=== PATIENT | female | born 1975 | race African-American/Black ===

== ENCOUNTER 2017-11-17 19:58 | Emergency (ER) | payer SELFPAY ==
[~2017-11-17] VITALS: Ht 167.6 cm; Wt 85.7 kg
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
--- NOTE | 2017-11-17 20:41 | NUR ---
DIONNE CAT AT BEDSIDE FOR EVAL.
[2017-11-17] MEDS ORDERED: KETOROLAC TROMETHAMINE INJ 30 MG/ML VIAL IM ONE (21:00)
[2017-11-17] MEDS ORDERED: KETOROLAC TROMETHAMINE 15 MG/ML VIAL ONE (21:03)
[2017-11-17] MEDS ORDERED: ONDANSETRON 4 MG TAB.RAPDIS ONE (21:24)
[2017-11-17] MEDS ORDERED: ONDANSETRON 4 MG TAB.RAPDIS PO ONE (21:30)
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
--- NOTE | 2017-11-17 22:09 | NUR ---
Patient discharged to home in stable condition. Written and verbal after care instructions given. Patient verbalizes understanding of instruction.
[2017-11-17 22:10] VITALS: BP 121/84
== END 2017-11-17 22:10 | disposition home or self-care (01) ==
LOC: ER 20:01
DX: R51 Headache (principal); M54.5 Low back pain; Z98.890 Other specified postprocedural states; Z88.1 Allergy status to other antibiotic agents; Z88.5 Allergy status to narcotic agent; Z88.6 Allergy status to analgesic agent; V43.52XA Car driver injured in collision with other type car in traffic accident, initial encounter; Y93.89 Activity, other specified; Y92.89 Other specified places as the place of occurrence of the external cause; Y99.8 Other external cause status
CPT/HCPCS: 72100; 84703; 96372; 99285; A4606; J1885; Q0162; Z7610